=== PATIENT | male | born 1985 | race Caucasian/White ===

== ENCOUNTER 2025-03-13 16:48 | Emergency (ER) | payer SELFPAY ==
[2025-03-13 18:38] LABS: BASOPHILS ABSOLUTE AUTO 0.04 K/uL (0.00-0.10); BASOPHILS PERCENT AUTO 0.3 % (0.1-1.3); EOSINOPHILS ABSOLUTE AUTO 0.04 K/uL (0.00-0.40); EOSINOPHILS PERCENT AUTO 0.3 % (0.0-5.4); IMMATURE GRAN ABSOLUTE AUTO 0.08 K/uL (0.00-0.23); IMMATURE GRAN PERCENT AUTO 0.5 % (0.0-0.7); LYMPHOCYTES ABSOLUTE AUTO 1.59 K/uL (0.8-3.3); LYMPHOCYTES PERCENT AUTO 10.0 % (11.4-47.7); MONOCYTES ABSOLUTE AUTO 0.95 K/uL (0.20-0.90); MONOCYTES PERCENT AUTO 6.0 % (3.3-12.6); NEUTROPHILS ABSOLUTE AUTO 13.15 K/uL (1.0-7.6); NEUTROPHILS PERCENT AUTO 82.9 % (40.0-78.1); PLATELET COUNT,PLT 379 K/uL (130-375); RED BLOOD CELL COUNT 5.11 M/uL (4.14-5.76); WHITE BLOOD CELL COUNT,WBC 15.9 K/uL (3.2-11.0)
[2025-03-13 18:56] LABS: ALANINE AMINOTRANSFERASE,ALT 93 U/L (12-78); ASPARTATE AMNIOTRANSFERASE,AST 83 U/L (15-37); BILIRUBIN TOTAL 0.6 mg/dL (0.2-1.0); BLOOD UREA NITROGEN,BUN 15 mg/dL (7-18); CARBON DIOXIDE,CO2 27 mmol/L (21-32); CHLORIDE,CL 102 mmol/L (100-108); CREATININE 1.1 mg/dL (0.8-1.3); EST CRCL DRUG DOSING (CG) 96.98 mL/min; ESTIMATED GFR 88 mL/min (>60); GLUCOSE RANDOM 101 mg/dL (74-106); POTASSIUM,K 3.5 mmol/L (3.6-5.2); PROTEIN TOTAL,TP 8.6 g/dL (6.4-8.2); SODIUM,NA 139 mmol/L (140-148)
[2025-03-13 18:57] LABS: A/G RATIO 1.2 (1.2-2.2); TROPONIN I HIGH SENSITIVITY < 4.0 pg/mL (<=60.3)
[2025-03-13] MEDS: Iopamidol 612 MG/ML 100 ML Bottle IV PRN (19:02)
[2025-03-13] MEDS: Sodium Chloride 0.9% 10 ML Syringe FLUSH ONE (19:02)
[2025-03-13] MEDS: Acetaminophen/oxyCODONE 325-5 MG Tab PO ONE (19:07)
[2025-03-13] MEDS: fentaNYL 50 MCG/ML SDV IVPUSH ONE (19:18)
[2025-03-13 19:40] LABS: APPEARANCE,URINE CLEAR (CLEAR); GLUCOSE,URINE NEGATIVE (NEGATIVE); OCCULT BLOOD,URINE TRACE-LYSED (NEGATIVE)
[2025-03-13 19:46] LABS: AMPHETAMINES SCREEN, URINE NEGATIVE (NEGATIVE); METHADONE SCREEN, URINE NEGATIVE (NEGATIVE); METHAMPHETAMINES SCREEN, URINE NEGATIVE (NEGATIVE); OXYCODONE SCREEN,URINE NEGATIVE (NEGATIVE); PROPOXYPHENE SCREEN,URINE NEGATIVE (NEGATIVE); SQUAMOUS EPITHELIAL CELLS,UR NOT SEEN /HPF; THC SCREEN,URINE 50 NG/ML NEGATIVE (NEGATIVE); UROTHELIAL CELLS,URINE NOT SEEN /HPF
[2025-03-13] MEDS: Ketorolac 15 MG/ML SDV IVPUSH ONE (21:24)
[2025-03-13] MEDS: Ondansetron 4 MG/2 ML SDV IVPUSH ONE (21:24)
== END 2025-03-13 21:30 | disposition home or self-care (01) ==
LOC: JP.ED 16:48
DX: S22.41XA Multiple fractures of ribs, right side, initial encounter for closed fracture (principal); V86.52XA Driver of snowmobile injured in nontraffic accident, initial encounter; Z79.899 Other long term (current) drug therapy
CPT/HCPCS: 36415; 70450; 71260; 72125; 74177; 76377; 80053; 80305-QW; 80307; 81001; 83690; 84484; 85025; 93005; 99284; A9270-GY; Q9967